=== PATIENT | female | born 1970 | race Two or more races ===

== ENCOUNTER 2023-02-26 10:17 | Emergency (ER) | payer OTHER ==
[~2023-02-26] VITALS: Ht 154.9 cm; Wt 118.6 kg
[~2023-02-26 10:17] MED LIST: CIPRO500 MG/5 M PO; FLEXERIL10 MG PO; NABUMETONE750 MG PO; NO TOMA MED; SKELAXIN800 MG PO
[2023-02-26 11:45] LABS: HEMATOCRIT 35.8 % (36.0-45.00); HEMOGLOBIN 12.1 g/dL (12.0-15.00); MEAN CELL VOLUME 89.4 fL (80.00-100.00); MEAN CORPUSCULAR HEMOGLOBIN 30.3 pg (27.00-32.0); MEAN CORPUSCULAR HGB CONC 33.9 g/dl (32.0-36.0); PLATELET COUNT 328 K/uL (150-450)
== END 2023-02-26 13:48 | disposition home or self-care (01) ==
LOC: ER 10:17
PROVIDERS: General Practice
DX: M79.604 Pain in right leg (principal); M79.605 Pain in left leg; Z88.0 Allergy status to penicillin

== ENCOUNTER 2023-04-19 11:41 | Emergency (ER) | payer OTHER ==
[~2023-04-19] VITALS: Ht 154.9 cm; Wt 95.3 kg
[2023-04-19 12:28] LABS: HEMATOCRIT 37.6 % (36.0-45.00); HEMOGLOBIN 12.6 g/dL (12.0-15.00); MEAN CELL VOLUME 90.5 fL (80.00-100.00); MEAN CORPUSCULAR HEMOGLOBIN 30.2 pg (27.00-32.0); MEAN CORPUSCULAR HGB CONC 33.4 g/dl (32.0-36.0); PLATELET COUNT 310 K/uL (150-450); RED BLOOD COUNT 4.15 M/uL (4.00-6.00); RED CELL DISTRIBUTION WIDTH 13.2 % (11.5-14.5)
== END 2023-04-19 13:31 | disposition home or self-care (01) ==
LOC: ER 11:41
PROVIDERS: General Practice
DX: R05.9 Cough, unspecified (principal); Z88.0 Allergy status to penicillin

== ENCOUNTER 2023-04-23 19:47 | Emergency (ER) | payer OTHER ==
[~2023-04-23] VITALS: Ht 154.9 cm; Wt 95.3 kg
[2023-04-23 22:14] LABS: ABG PH 7.455 (7.35-7.45); ABG PO2 110.4 mmHg (80-100); ABG pCO2 37.4 mmHg (35-45); BASE EXCESS 0.6 mmol/l; BICARBONATE 24.5 mmol/l (23-25); SaO2 98.5 %; Tco2 25.7 mmol/l; allen test SATISFACTORY; o2 21 %; puncture site RADIAL RIGHT
== END 2023-04-23 22:31 | disposition home or self-care (01) ==
LOC: ER 19:47
PROVIDERS: General Practice
DX: R05.9 Cough, unspecified (principal); Z88.0 Allergy status to penicillin

== ENCOUNTER 2023-06-28 10:51 | Emergency (ER) | payer OTHER ==
[~2023-06-28] VITALS: Ht 154.9 cm; Wt 117.9 kg
[2023-06-28 13:36] LABS: HEMATOCRIT 35.9 % (36.0-45.00); HEMOGLOBIN 12.3 g/dL (12.0-15.00); MEAN CELL VOLUME 88.7 fL (80.00-100.00); MEAN CORPUSCULAR HEMOGLOBIN 30.4 pg (27.00-32.0); MEAN CORPUSCULAR HGB CONC 34.3 g/dl (32.0-36.0); PLATELET COUNT 306 K/uL (150-450); RED BLOOD COUNT 4.04 M/uL (4.00-6.00); RED CELL DISTRIBUTION WIDTH 13.3 % (11.5-14.5)
[2023-06-28] MEDS ORDERED: PAXLOVID 300-11 EAC1 PO (14:06)
[2023-06-28] MEDS ORDERED: ZITHROMAX500 MG PO (14:31)
== END 2023-06-28 14:48 | disposition home or self-care (01) ==
LOC: ER 10:52
PROVIDERS: General Practice
DX: J06.9 Acute upper respiratory infection, unspecified (principal); Z20.822 Contact with and (suspected) exposure to COVID-19